=== PATIENT | male | born 1945 | race Caucasian/White ===

== ENCOUNTER 2016-06-02 22:53 | Inpatient (IN) | payer OTHER ==
--- NOTE | ~2016-06-02 | HP ---
Unit #: [id number] #: [id number] Patient: JAISON PEÑA [id number] [facility] [address] [facility]. [place], [place] [address] [id number] MR#: [id number] NAME: JAISON PEÑA ROOM: 560 Age: 70 Sex: M Admission Date: 06/03/2016 : 1945 Attending Physician: Bianca Bonilla M.D. Primary Care Physician: Fidel Marcus M.D. HISTORY AND PHYSICAL HISTORY OF PRESENT ILLNESS This is a 70-year-old white male previously known to Dr. Nielsen with a past medical history of coronary artery disease, status post coronary artery bypass grafting in 2005. Patient was admitted to [facility] in November 2015 for an inferior wall myocardial infarction. He underwent a cardiac catheterization on December 17, 2015, per Dr. Nielsen which revealed an EF of 60%. The patient had a 50% stenosis in the mid LAD. Left internal mammary artery to the LAD was patent but there was competitive flow. There was a possible saphenous vein graft to the diagonal which appeared occluded. Proximal left circumflex was 50% to 60%. Right coronary artery was 60% to 70% and then 99%. He underwent a PCI and drug-eluting stent in the mid and proximal right coronary artery. A 2D echocardiogram was previously completed June 2014, which revealed a left ventricular ejection fraction greater than or equal to 55%. There was some impaired LV relaxation and mild tricuspid regurgitation. Additional past medical history includes: Hypertension, hyperlipidemia, and reformed tobacco abuse. The patient presented to the hospital with complaints of shoulder pain. He states that a couple days ago he was out in his yard raking leaves and playing with his grandson. He went inside to lay down and felt excruciating pain in between his shoulder blades. It was described as an aching pain. He broke out in a sweat and was slightly short of breath. There was no nausea or vomiting. The pain lasted up to an hour. He took three sublingual nitroglycerin and it improved but then recurred. Over that last couple of days since that episode, he has had intermittent episodes of pain between the shoulders. There is no pain reported in the chest. He admits to occasional dizziness but no syncope. There are no reports of PND, orthopnea, or lower extremity edema. He has had some occasional palpitations that seem to be worse at night. His spouse states that he occasionally snores but not on a regular basis. In the emergency department, temperature was 97.4, pulse 76, respirations 16, blood pressure 173/80, and O2 saturation 99% on room air. Initial cardiac enzymes were negative. EKG revealed sinus rhythm with no acute findings. The patient took a dose of aspirin at home. He was started on topical nitrates. He was admitted for further management of unstable angina. He is currently resting comfortably but admits to some nausea. Cardiac enzymes were negative in the emergency department but are pending for today. PAST MEDICAL HISTORY 1. Coronary artery disease, inferior wall myocardial infarction, status post cardiac catheterization on December 17, 2015, at [facility]. Mal[place] and Unit #: [id number] #: [id number] Patient: [facility] per Dr. Nielsen which revealed: Left main: Normal. Proximal LAD 30% to 40% involving the origin of the first septal multimedia artist. Distal to the first diagonal branch, there was a 50% to 60% stenosis. Distal to the second diagonal branch, there was insertion of left internal mammary artery graft. Left internal mammary artery patent but competitive flow noted due to [place] vessel. Fifty to 60% stenosis in the left circumflex before the origin of the posterior marginal branch. Stenosis best seen in the RUDDY view. Sixty percent stenosis with mild haziness suggestive of thrombus burden followed by a 99% stenosis at the junction of the proximal and distal right coronary artery. PDA and PLV normal. Inferior wall severe hypokinesis, ejection fraction 60%. 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 Saphenous vein graft to unknown destination occluded as noted on previous study in 2010. 2. Status post percutaneous coronary intervention and drug-eluting stent x2 in the right coronary artery. 3. A 2D echocardiogram, July 21, 2014, revealed a left ventricular ejection fraction greater than or equal to 55%, impaired LV relaxation, mild tricuspid regurgitation, aortic valve sclerosis but no stenosis. 4. History of cardiac catheterization in 2010. 5. History of coronary artery bypass grafting in 2005. 6. Hypertension. 7. Hyperlipidemia. 8. BPH. 9. Reformed tobacco abuse. PAST SURGICAL HISTORY 1. Coronary artery bypass grafting in 2005. 2. Cardiac catheterization as noted above. 3. Tonsillectomy. 4. Colonoscopy x2 with diagnosis of hemorrhoids. HOME MEDICATIONS 1. Aspirin 81 mg p.o. daily. 2. Coreg 3.125 mg p.o. b.i.d. 3. Lipitor 40 mg p.o. nightly. 4. Cozaar 25 mg p.o. daily. 5. Plavix 75 mg p.o. daily. ALLERGIES Lisinopril, adverse reaction to simvastatin with muscle aches. SOCIAL HISTORY The patient lives in a private residence with his . He is a reformed smoker. He quit smoking in 2005 when he had his coronary artery bypass grafting. There are no reports of alcohol or illicit drug use. FAMILY HISTORY Significant for heart disease in his father and grandfather. REVIEW OF SYSTEMS A 12-point review of systems negative except for details noted above. Also, the patient has had occasional edema in his feet but none currently. He also has a history of constipation and occasional rectal bleeding which is bright red. Bleeding is related to hemorrhoids. He is up to date on his colonoscopy. Unit #: [id number] #: [id number] Patient: JAISON PEÑA PHYSICAL EXAMINATION VITAL SIGNS: Temperature 97.7, pulse 66, blood pressure 130/60. CONSTITUTIONAL: This is a 70-year-old white male in no acute distress. SKIN: Warm and dry. NECK: Supple. No jugular venous distention. No hepatojugular reflux. Normal carotid upstrokes. No carotid bruits auscultated. HEART: S1, S2. Regular rate and rhythm. No murmurs, rubs, or gallops. LUNGS: Bilateral breath sounds have good air entry through all lung mckeon. Respirations even and nonlabored. No rales, rhonchi, or wheezes. ABDOMEN: Soft, nontender, nondistended. Positive bowel sounds positive x4 quadrants. No ascites noted. EXTREMITIES: Bilateral lower extremities have no pretibial pitting edema. DP and PT pulses 2+. Capillary refill less than 3 seconds. DIAGNOSTIC STUDIES LABORATORY: WBC 8.1, hematocrit 14, hematocrit 39.9, platelets 175,000. Sodium 138, potassium 3.4, chloride 100, CO2 of 26, BUN 18, creatinine 0.8, glucose 109. AST 25, ALT 29, alkaline phosphatase 72. INR 1. Troponin 0.05. IMAGING: Chest x-ray pending review. CARDIOVASCULAR: EKG reveals sinus rhythm, first degree AV block. No acute ST or T wave changes. IMPRESSION 1. Unstable angina. 2. Coronary artery disease with history of coronary artery bypass grafting in 2005. Percutaneous coronary intervention and stent in the right coronary artery, December 17, 2015. Occluded right internal mammary artery and saphenous vein graft to unknown destination as noted previously in 2010. 3. Left ventricular ejection fraction 60%. 4. Hypertension. 5. Hyperlipidemia. 6. Mild hypokalemia. 7. Reformed tobacco abuse. PLAN 1. The patient presented to the hospital with complaints of pain between the shoulder blades accompanied by diaphoresis and shortness of breath. 2. He was admitted for unstable angina. 3. He was placed on topical nitrates and therapeutic Lovenox. He has been continued on dual antiplatelet therapy, beta joselyn, and ARB as dosed from home. 4. His Lipitor has been increased. 5. He has been recommended to undergo a repeat cardiac catheterization. The risks and benefits have been discussed and he is agreeable. 6. His potassium will be replaced. 7. Repeat cardiac enzymes, EKG, and chemistry will be obtained. Dictated by Sofía Garzon APRN for Bianca Bonilla M.D. Unit #: [id number] #: [id number] Patient: JAISON PEÑA BENITA/rosemarie TD: 06/03/2016 11:27 JOB #: [id number] HISTORY AND PHYSICAL X X HISTORY AND PHYSICAL
--- NOTE | ~2016-06-02 | EKG ---
PATIENT: JAISON PEÑA UNIT #: [id number] Ventricular Rate: 62 BPM Atrial Rate: 62 BPM P-R Interval: 222 ms QRS Duration: 82 ms Q-T Interval: 438 ms QTC Calculation(Bezet): 444 ms P [place]: 89 degrees Calculated R [place]: 44 degrees Calculated T [place]: 54 degrees Diagnosis Line: Sinus rhythm with 1st degree A-V block Diagnosis Line: Otherwise normal ECG Diagnosis Line: When compared with ECG of 18-DEC-2015 07:09, Diagnosis Line: T wave inversion no longer evident in Inferior Diagnosis Line: leads Diagnosis Line: Confirmed by TREVOR FULLER MD ([id number]) on Diagnosis Line: 06/03/2016 8:11:48 PM INTERPRETING MD: VALENTIN
--- NOTE | ~2016-06-02 | EKG ---
PATIENT: JAISON PEÑA UNIT #: [id number] Ventricular Rate: 63 BPM Atrial Rate: 63 BPM P-R Interval: 208 ms QRS Duration: 84 ms Q-T Interval: 396 ms QTC Calculation(Bezet): 405 ms P [place]: 76 degrees Calculated R [place]: 31 degrees Calculated T [place]: 33 degrees Diagnosis Line: Normal sinus rhythm Diagnosis Line: Normal ECG Diagnosis Line: When compared with ECG of 04-JUN-2016 13:44, Diagnosis Line: (unconfirmed) Diagnosis Line: No significant change was found Diagnosis Line: Confirmed by BASIL JORDAN MD ([id number]) on 06/06/2016 Diagnosis Line: 7:27:30 PM INTERPRETING MD: JULIAN JEFFERY
--- NOTE | ~2016-06-02 | EKG ---
PATIENT: JAISON PEÑA UNIT #: [id number] Ventricular Rate: 73 BPM Atrial Rate: 73 BPM P-R Interval: 206 ms QRS Duration: 80 ms Q-T Interval: 392 ms QTC Calculation(Bezet): 431 ms P [place]: 79 degrees Calculated R [place]: 34 degrees Calculated T [place]: 36 degrees Diagnosis Line: Normal sinus rhythm Diagnosis Line: Normal ECG Diagnosis Line: When compared with ECG of 04-JUN-2016 05:44, Diagnosis Line: (unconfirmed) Diagnosis Line: No significant change was found Diagnosis Line: Confirmed by BASIL JODRAN MD ([id number]) on 06/06/2016 Diagnosis Line: 7:23:35 PM INTERPRETING MD: JULIAN JEFFERY
--- NOTE | ~2016-06-02 | EKG ---
PATIENT: JAISON PEÑA UNIT #: [id number] Ventricular Rate: 74 BPM Atrial Rate: 74 BPM P-R Interval: 182 ms QRS Duration: 82 ms Q-T Interval: 400 ms QTC Calculation(Bezet): 444 ms P [place]: 63 degrees Calculated R [place]: 30 degrees Calculated T [place]: 47 degrees Diagnosis Line: Normal sinus rhythm Diagnosis Line: Normal ECG Diagnosis Line: When compared with ECG of 18-DEC-2015 07:09, Diagnosis Line: SD interval has decreased Diagnosis Line: Nonspecific T wave abnormality has replaced Diagnosis Line: inverted T waves in Inferior leads Diagnosis Line: Confirmed by TREVOR FULLER MD ([id number]) on Diagnosis Line: 06/03/2016 8:10:58 PM INTERPRETING MD: VALENTIN
--- NOTE | ~2016-06-02 | DS ---
Unit #: [id number] #: [id number] Patient: JAISON PEÑA [id number] [address] [place], [place] [address] [id number] I MR#: [id number] NAME: JAISON PEÑA ROOM: 560 Age: 70 Sex: M Admission Date: 06/03/2016 : 1945 Discharge Date: 06/05/2016 Attending Physician: Bianca Bonilla M.D. Primary Care Physician: Fidel Anguiano DISCHARGE SUMMARY DISCHARGE DIAGNOSES 1. Chest pain, ruled out for myocardial infarction. 2. Coronary artery disease, status post cardiac catheterization on 06/05/[address] Nielsen which revealed left ventricular ejection fraction normal. Left main normal. Mid LAD 60%. KENDALL patent. Final operative report pending. Medical management. 3. Previous inferior wall myocardial infarction, status post cardiac catheterization 12/17/2015 which revealed left main normal. Proximal LAD 30% to 40% involving the origin of the first septal sample collector. Distal to first diagonal branch there was a 50% to 60% stenosis. Distal to the second diagonal branch there was insertion of the left internal mammary artery. Left internal mammary artery patent but with competitive flow. 50% to 60% stenosis in the left circumflex before the origin of the posterior marginal branch. 60% with mild haziness suggestive of thrombus burden followed by a 99% stenosis at the junction of the proximal and distal right coronary artery. PDA and PLV normal. EF 60%. ERIK occluded in the mid segment as noted in 2010. Saphenous vein graft to unknown destination occluded as noted in 2010. Status post PCI and drug-eluting stent times 2 in the right coronary artery. 4. 2D echocardiogram 07/21/2014 revealed left ventricular ejection fraction greater than or equal to 55%. Impaired LV relaxation. Mild tricuspid regurgitation. Aortic valve sclerosis but no stenosis. 5. Previous cardiac catheterization in 2010. 6. Coronary artery bypass grafting in 2005. 7. Hypertension. 8. Hyperlipidemia. 9. Benign prostatic hypertrophy. 10. Reformed tobacco abuse. DISCHARGE MEDICATIONS 1. Carvedilol 3.125 mg p.o. b.i.d. 2. Lipitor 80 mg p.o. h.s. 3. Cozaar 25 mg p.o. daily. 4. Aspirin 81 mg p.o. daily. 5. Plavix 75 mg p.o. daily. 6. Protonix 40 mg p.o. daily. 7. Nitroglycerin 0.4 mg sublingual every 5 minutes times 3 p.r.n. for chest pain. 8. Imdur 30 mg p.o. daily. HOSPITAL COURSE This is a 70-year-old white male known to Dr. Nielsen with a past medical history of coronary artery disease, status post coronary artery bypass Unit #: [id number] #: [id number] Patient: JAISON PEÑA grafting in 2005, with PCI and stent in the right coronary artery in November 2015, due to an inferior wall myocardial infarction. The patient is known to have hypertension and hyperlipidemia. He presented to the emergency department on 06/03/2016 with complaints of pain between the scapula. The pain felt similar to his previous myocardial infarction. He was admitted with concern for unstable angina. He was placed on topical nitrates and therapeutic Lovenox. His dual-antiplatelet therapy was continued from home as well as his beta joselyn and ARB. Serial cardiac enzymes were negative. He ruled out for a myocardial infarction. He was recommended to undergo a cardiac catheterization. He was taken for the procedure on 06/05/[address] Nielsen. Preliminary report revealed left main normal. The LAD had a 60% lesion in the mid vessel. KENDALL was patent. He was continued on medical management. He has been started on oral nitrates. His statin was increased. As soon as his vascular checks are completed and he has ambulated he will be discharged home. Telemetry reveals no sustained arrhythmias. Labs are stable. He has been instructed to follow up with Dr. Nielsen in the office on 08/15/2016 at 2:15 p.m. DIAGNOSTIC STUDIES LABORATORY: White blood cell count 7, hemoglobin 14.5, hematocrit 40.9, platelets 177. Sodium 140, potassium 4.9, chloride 105, CO2 of 28, BUN 17, creatinine 1.0, glucose 102, AST 25, ALT 29, alkaline phosphatase 72. Troponin 0.03, 0.03 and 0.03. Total cholesterol 154, triglycerides 132, LDL 93, HDL 35. INR 1.0. IMAGING: Chest x-ray reveals no acute findings. Prior median sternotomy. CARDIOVASCULAR: EKG reveals sinus rhythm with a ventricular rate of 63 beats per minute. Low voltage QRS. No acute ST or T-wave changes. QTC 405 msec. PHYSICAL EXAMINATION VITAL SIGNS: Temperature 97.8, pulse 58, blood pressure 120/64. GENERAL: This is a 70-year-old white male in no acute distress. SKIN: Warm and dry. NECK: Supple. No jugular vein distention. No hepatojugular reflux. Normal carotid upstrokes. No carotid bruits auscultated. HEART: S1, S2. Regular rate and rhythm. No murmurs, rubs, or gallops. LUNGS: Bilateral breath sounds have good air entry throughout all lung mckeon. Respirations even and unlabored. No rales, rhonchi, or wheezes. ABDOMEN: Soft, nontender, nondistended. Positive bowel sounds auscultated times four quadrants. No ascites noted. EXTREMITIES: Bilateral lower extremities have no pretibial pitting edema. DP and PT pulses are 2+. Capillary refill is less than 3 seconds. DISCHARGE INSTRUCTIONS 1. The patient will be discharged home today after vascular checks and ambulation. 2. Follow up with primary care physician in one to two weeks. 3. Follow up with Dr. Nielsen on 08/15/2016 at 2:15 p.m. 4. Post-cath instructions. 5. Prescriptions provided for Imdur and Protonix. Unit #: [id number] #: [id number] Patient: JAISON PEÑA Dictated by... Sofía Garzon APRN for Ky Sy/quentin TD: 06/07/2016 17:51 JOB #: [id number] DISCHARGE SUMMARY X X DISCHARGE SUMMARY
--- NOTE | ~2016-06-02 | EKG ---
PATIENT: JAISON PEÑA UNIT #: [id number] Ventricular Rate: 61 BPM Atrial Rate: 61 BPM P-R Interval: 210 ms QRS Duration: 80 ms Q-T Interval: 414 ms QTC Calculation(Bezet): 416 ms P [place]: 65 degrees Calculated R [place]: 19 degrees Calculated T [place]: 18 degrees Diagnosis Line: Sinus rhythm with 1st degree A-V block Diagnosis Line: Otherwise normal ECG Diagnosis Line: When compared with ECG of 03-JUN-2016 06:15, Diagnosis Line: No significant change was found Diagnosis Line: Confirmed by BASIL JORDAN MD ([id number]) on 06/06/2016 Diagnosis Line: 7:20:11 PM INTERPRETING MD: JULIAN JEFFERY
--- NOTE | ~2016-06-02 | CR72 ---
[facility] A Service of [facility] RADIOLOGY TEXT RESULTS PATIENT: JAISON PEÑA LOCATION: [facility] 560-01 : [birth year] UNIT #: [id number] AGE: [address]: Bianca Bonilla MD SEX: M ORDER DR: [id number] [facility] [address] [place], [place] [address] [id number] I MR#: [id number] #: [id number] NAME: JAISON PEÑA : 1945 SEX: M STUDY DATE/TIME: 06/02/2016 21:19 UNIT: [facility] ROOM: [facility] STUDY DESCRIPTION: CR Chest Single View Portable Attending Physician: Bianca Bonilla M.D. Ordering Physician: Tenzin Denson M.D. Primary Care Physician: Fidel Marcus M.D. MEDICAL IMAGING REPORT This report is preliminary unless electronic signature is present EXAM Portable chest, 06/02/2016. HISTORY Chest pain beginning today. Coronary artery disease with prior myocardial infarction. Pain left side of chest today. FINDINGS The heart is normal in size, status post median sternotomy. The lungs are clear. There are no pleural effusions. IMPRESSION Prior median sternotomy. No active pulmonary disease. Dictated by... Joseph Peterson M.D. THIS IS AN ELECTRONICALLY VERIFIED REPORT Joseph Peterson M.D. at 06/04/2016 2:20 PM BOB/dar TD: 06/03/2016 16:21 JOB #: [id number] MEDICAL IMAGING REPORT COPY
[2016-06-02 21:33] LABS: POC - CKMB <1.0 ng/mL (0.0-7.9); POC - TROPONIN <0.05 ng/mL (<=0.05)
[2016-06-02 21:47] LABS: BASOPHIL# 0.1 X10e3 (0-0.3); EOSINOPHIL# 0.4 X10e3 (0-0.7); HEMATOCRIT 40.8 % (38.0-50.0); HEMOGLOBIN 14.3 gm/dL (13.0-16.0); LYMPHOCYTE# 1.5 X10e3 (1.0-3.5); LYMPHOCYTE% 19.9 % (17.0-45.0); MEAN CELL VOLUME 87.2 FL (83-96); MEAN CORPUSCULAR HEMOGLOBIN 30.5 PG (28-34); MEAN PLATELET VOLUME 7.3 FL (6.5-11.5); MONOCYTE# 0.6 X10e3 (0-1.0); MONOCYTE% 8.3 % (3.0-12.0); NEUTROPHIL# 4.8 X10e3 (1.5-7.1); NEUTROPHIL% 64.8 % (40-75); PLATELET COUNT 179 X10e3 (140-420); RED BLOOD COUNT 4.68 X10e (3.90-5.60); RED CELL DISTRIBUTION WIDTH 14.6 % (11.0-15.5); WHITE BLOOD COUNT 7.4 X10e3 (4.0-10.5)
[2016-06-02 21:57] LABS: DIFF IND NO
[2016-06-02 22:05] LABS: PARTIAL THROMBOPLASTIN TIME 27.5 SECONDS (23.5-31.3); PROTHROMBIN TIME (PATIENT) 10.8 SECONDS (9.6-11.5)
[2016-06-02 22:12] LABS: ALBUMIN SERUM 4.2 g/dL (3.5-5.0); ALKALINE PHOSPHATASE 72 U/L (32-92); ALT (SGPT) 29 U/L (10-40); AST (SGOT) 25 U/L (10-42); BILIRUBIN, DIRECT 0.1 mg/dL (0.0-0.2); BILIRUBIN,INDIRECT 0.4 mg/dL (0.0-0.9); BILIRUBIN,TOTAL 0.5 mg/dL (0.2-2.0); BLOOD UREA NITROGEN 18 mg/dL (9-23); CALCIUM SERUM 9.4 mg/dL (8.4-10.2); CARBON DIOXIDE 26 mmol/L (22-31); CHLORIDE 100 mmol/L (100-111); CREATININE SERUM 0.8 mg/dL (0.6-1.4); GLOM FILT RATE Estimated ABOVE60 mL/min (>60); GLUCOSE FASTING 109 mg/dL (70-110); POTASSIUM 3.4 mmol/L (3.5-5.1); PROTEIN TOTAL SERUM 7.5 g/dL (6.0-8.3); SODIUM 138 mmol/L (135-145)
[~2016-06-02 22:53] MED LIST: AMLODIPINE BESYL5 MG PO; ASPIR-TRIN325 MG PO; ASPIRIN81 M2 PO; BRILINTA90 MG PO; CLOPIDOGREL75 MG PO; COREG3.125 M1 PO; COZAAR25 MG PO; FISH OIL 1,0001 CA2 PO; FISH OIL 1,0001 CAP PO; HYDROCHLOROTHIA25 MG PO; HYTRIN2 MG PO; LIPITOR40 MG PO; MULTIPLE VITAMI1 T11 PO; MULTIVITAMIN1 UDCAP PO; SIMVASTATIN40 MG PO; TENORMIN50 MG PO; TERAZOSIN HCL1 MG PO
[2016-06-03 00:01] LABS: POC - CKMB <1.0 ng/mL (0.0-7.9); POC - TROPONIN <0.05 ng/mL (<=0.05)
[2016-06-03 00:35] LABS: POC - CKMB <1.0 ng/mL (0.0-7.9); POC - TROPONIN <0.05 ng/mL (<=0.05)
[2016-06-03] MEDS ORDERED: HYDROCHLOROTHIA25 MG PO (03:07)
[2016-06-03 08:14] LABS: BASOPHIL# 0.1 X10e3 (0-0.3); BASOPHIL% 0.8 % (0-2.5); EOSINOPHIL# 0.4 X10e3 (0-0.7); EOSINOPHIL% 5.1 % (0.0-7.0); HEMATOCRIT 39.9 % (38.0-50.0); LYMPHOCYTE# 1.7 X10e3 (1.0-3.5); LYMPHOCYTE% 20.7 % (17.0-45.0); MEAN CELL VOLUME 87.9 FL (83-96); MEAN CORPUSCULAR HEMOGLOBIN 30.7 PG (28-34); MEAN CORPUSCULAR HGB CONC 34.9 g/dL (30-36); MEAN PLATELET VOLUME 7.4 FL (6.5-11.5); MONOCYTE# 0.7 X10e3 (0-1.0); MONOCYTE% 8.7 % (3.0-12.0); NEUTROPHIL# 5.3 X10e3 (1.5-7.1); NEUTROPHIL% 64.7 % (40-75); PLATELET COUNT 175 X10e3 (140-420); RED BLOOD COUNT 4.55 X10e (3.90-5.60); RED CELL DISTRIBUTION WIDTH 14.3 % (11.0-15.5); WHITE BLOOD COUNT 8.1 X10e3 (4.0-10.5)
[2016-06-03 08:15] LABS: DIFF IND NO
[2016-06-03 08:58] LABS: CHOLESTEROL 154 mg/dL (0-200); HDL CHOLESTEROL 35 mg/dL (29-75); LDL CHOLESTEROL 93 mg/dL (-130); LDL/HDL RATIO 3 RATIO (0-4); TRIGLYCERIDES 132 mg/dL (10-160)
[2016-06-04 05:39] LABS: HEMOGLOBIN 13.6 gm/dL (13.0-16.0); MEAN CELL VOLUME 87.4 FL (83-96); MEAN CORPUSCULAR HEMOGLOBIN 30.4 PG (28-34); MEAN CORPUSCULAR HGB CONC 34.8 g/dL (30-36); MEAN PLATELET VOLUME 7.4 FL (6.5-11.5); RED BLOOD COUNT 4.47 X10e (3.90-5.60); RED CELL DISTRIBUTION WIDTH 14.1 % (11.0-15.5); WHITE BLOOD COUNT 6.9 X10e3 (4.0-10.5)
[2016-06-04 06:17] LABS: BLOOD UREA NITROGEN 18 mg/dL (9-23); CARBON DIOXIDE 26 mmol/L (22-31); CHLORIDE 104 mmol/L (100-111); GLOM FILT RATE Estimated ABOVE60 mL/min (>60); GLUCOSE FASTING 143 mg/dL (70-110); POTASSIUM 3.9 mmol/L (3.5-5.1); SODIUM 138 mmol/L (135-145)
[2016-06-05 06:52] LABS: HEMATOCRIT 40.9 % (38.0-50.0); HEMOGLOBIN 14.5 gm/dL (13.0-16.0); MEAN CELL VOLUME 88.4 FL (83-96); MEAN CORPUSCULAR HEMOGLOBIN 31.3 PG (28-34); MEAN CORPUSCULAR HGB CONC 35.4 g/dL (30-36); MEAN PLATELET VOLUME 7.7 FL (6.5-11.5); RED BLOOD COUNT 4.62 X10e (3.90-5.60); RED CELL DISTRIBUTION WIDTH 14.1 % (11.0-15.5)
[2016-06-05 07:04] LABS: PARTIAL THROMBOPLASTIN TIME 31.2 SECONDS (23.5-31.3); PROTHROMBIN TIME (PATIENT) 10.4 SECONDS (9.6-11.5)
[2016-06-05 07:24] LABS: BLOOD UREA NITROGEN 17 mg/dL (9-23); CALCIUM SERUM 9.5 mg/dL (8.4-10.2); CARBON DIOXIDE 28 mmol/L (22-31); CHLORIDE 105 mmol/L (100-111); GLOM FILT RATE Estimated ABOVE60 mL/min (>60); GLUCOSE FASTING 102 mg/dL (70-110); POTASSIUM 4.9 mmol/L (3.5-5.1); SODIUM 140 mmol/L (135-145)
[2016-06-05] MEDS ORDERED: PROTONIX PO (17:44)
[2016-06-05] MEDS ORDERED: IMDUR-ER30 M2 PO (17:45)
[2016-06-05] MEDS ORDERED: NITROSTAT0.4 MG SL (17:46)
== END 2016-06-05 18:51 | disposition home or self-care (01) | DRG 287 ==
LOC: CED 22:53 → C5C 06-03 00:22 → C5B 06-03 00:56
PROVIDERS: Emergency Medicine; Internal Medicine Cardiovascular Disease
PROC: 4A023N8 Measurement of Cardiac Sampling and Pressure, Bilateral, Percutaneous Approach (ICD-10-PCS; principal; 2016-06-05)
PROC: B211YZZ Fluoroscopy of Multiple Coronary Arteries using Other Contrast (ICD-10-PCS; 2016-06-05)
PROC: B213YZZ Fluoroscopy of Multiple Coronary Artery Bypass Grafts using Other Contrast (ICD-10-PCS; 2016-06-05)
PROC: B215YZZ Fluoroscopy of Left Heart using Other Contrast (ICD-10-PCS; 2016-06-05)
PROC: 3E0234Z Introduction of Serum, Toxoid and Vaccine into Muscle, Percutaneous Approach (ICD-10-PCS; 2016-06-05)
DX: I25.110 Atherosclerotic heart disease of native coronary artery with unstable angina pectoris (principal); I95.9 Hypotension, unspecified; I10 Essential (primary) hypertension; E78.5 Hyperlipidemia, unspecified; E87.6 Hypokalemia; Z87.891 Personal history of nicotine dependence; R07.9 Chest pain, unspecified; I25.720 Atherosclerosis of autologous artery coronary artery bypass graft(s) with unstable angina pectoris; I25.710 Atherosclerosis of autologous vein coronary artery bypass graft(s) with unstable angina pectoris; Z23 Encounter for immunization; N40.0 Benign prostatic hyperplasia without lower urinary tract symptoms; I08.2 Rheumatic disorders of both aortic and tricuspid valves
CPT/HCPCS: 36415; 71010; 80048; 80061; 80076; 82553; 84484; 85025; 85027; 85610; 85730; 90732; 93005; 99285; C1769; C1887; G0009; J1644; J1650; J2250; J2270; J2405; J3010